=== PATIENT | female | born 1980 | race Caucasian/White ===

== ENCOUNTER 2018-02-28 12:50 | Outpatient (CLI) | payer BC | END 2018-02-28 12:51 | disposition home or self-care (01) | LOC: DTY/OP 12:50 | PROVIDERS: ATTEND Family Medicine | DX: E66.9 Obesity, unspecified (principal); R63.0 Anorexia | CPT/HCPCS: 97802 ==

== ENCOUNTER 2025-07-01 15:34 | Outpatient (CLI) | payer BC | END 2025-07-01 15:35 | disposition home or self-care (01) | LOC: CT 15:34 | DX: R39.15 Urgency of urination (principal); N20.0 Calculus of kidney | CPT/HCPCS: 74176 ==